=== PATIENT | male | born 1990 | race Caucasian/White ===

== ENCOUNTER 2016-10-22 19:08 | Emergency (ER) | payer OTHER ==
[2016-10-22 19:14] VITALS: RESP 16; O2SAT 97
--- NOTE | 2016-10-22 19:33 | EDPHY ---
H & P Time Seen by Provider: 10/22/16 19:20 HPI/ROS: Chief complaint. Paresthesias HPI. 25-year-old male presents emergency department with sudden onset of pins and needles feeling to his whole body including both sides of arms and legs. He had tingling and numbness to his face. He felt his mouth had tightening up. This occurred at 11:30 a.m. and lasted about 1 hour. Now his joints ache. He has had no fever cough. No headache or visual symptoms with his episode today. Denies chest pain or shortness of breath. Just feels weak like he could only due to pushups. No abdominal pain, vomiting diarrhea. No similar symptoms previously. Baseline healthy without medical problems ROS Constitutional. Generalized weakness Eyes. no problems with vision ENT. no sore throat, no nasal drainage Cardiovascular. no chest pain Respiratory. no shortness of breath, no cough Abdominal. no abdominal pain, no nausea/vomiting, no diarrhea . no problems urinating MS. no calf pain/swelling, no neck/back pain, no joint pain Skin. no rash Lymph. no swollen glands Neuro. Paresthesia Past Medical/Surgical History: Healthy Social History: Single, nonsmoker, no alcohol Smoking Status: Never smoked Physical Exam: General Appearance: Alert well-developed male mild distress vital signs stable Eyes: Pupils equal and round no pallor or injection. ENT, Mouth: Mucous membranes are moist. Respiratory: There are no retractions, lungs are clear to auscultation. Cardiovascular: Regular rate and rhythm. Gastrointestinal: Abdomen is soft and nontender, no masses, bowel sounds normal. Neurological: Awake and alert, sensory and motor exams grossly normal. Normal speech. Cranial nerves normal. No pronator drift. [id number] and heel-to- [place] are intact Skin: Warm and dry, no rashes. Musculoskeletal: Neck is supple nontender. Extremities symmetrical, full range of motion. Psychiatric: Patient is oriented X 3, there is no agitation. Constitutional: Initial Vital Signs Temperature (C) 36.6 C 10/22/16 19:11 Heart Rate 60 10/22/16 19:11 Respiratory Rate 16 10/22/16 19:11 Blood Pressure 121/81 H 10/22/16 19:11 O2 Sat (%) 97 10/22/16 19:11 O2 Delivery Mode Room Air Allergies/Adverse Reactions: Sulfa (Sulfonamide Antibiotics) Allergy (Verified 10/22/16 19:14) Home Medications: Medication Instructions Recorded NK [No Known Home Meds] 10/22/16 Medical Decision Making - Diagnostics EKG Interpretation: EKG interpreted by me shows normal sinus rhythm with normal interval and axis. QRS is normal there is no significant ST elevation or depression. There is slight sinus arrhythmia. Heart rate is 48 Procedures: IV normal saline ED Course/Re-evaluation: Re-evaluation 8:25 p.m.--patient is stable. He is conversational. He is moving all extremities. His symptoms are resolving however he says that he gets pins and needles distal to the blood pressure cuff went to his blood pressure and he has a Kerlix wrap on the left arm around his IV and he feels that this causes some tingling down stream. Patient and I discussed lab an EKG results. We discussed treatment plan including criteria for return importance of follow-up and further evaluation. He expresses understanding and agreement Differential Diagnosis: Other than the sensation of paresthesias the patient is totally neurologically intact. He has no motor findings no localizing findings. He has no headache. He has no neck pain. I suspect that this is likely anxiety. I also considered hypocalcemia, arrhythmia, electrolyte abnormalities - Data Points Laboratory Results: Laboratory Results 10/22/16 19:55 10/22/16 19:55 10/22/16 10/22/16 19:55 19:55 WBC 5.79 10^3/uL 10^3/uL (3.80-9.50) RBC 5.58 10^6/uL 10^6/uL (4.40-6.38) Hgb 17.3 g/dL g/dL (13.7-17.5) Hct 50.1 % % (40.0-51.0) MCV 89.8 fL fL (81.5-99.8) MCH 31.0 pg pg (27.9-34.1) MCHC 34.5 g/dL g/dL (32.4-36.7) RDW 11.8 % % (11.5-15.2) Plt Count 232 10^3/uL 10^3/uL (150-400) MPV 9.2 fL fL (8.7-11.7) Neut % (Auto) 39.9 % % (39.3-74.2) Lymph % (Auto) 40.2 % % (15.0-45.0) [place] % (Auto) 12.8 % % (4.5-13.0) Eos % (Auto) 6.2 % % (0.6-7.6) Baso % (Auto) 0.7 % % (0.3-1.7) Nucleat RBC Rel Count 0.0 % % (0.0-0.2) Absolute Neuts (auto) 2.31 10^3/uL 10^3/uL (1.70-6.50) Absolute Lymphs (auto) 2.33 10^3/uL 10^3/uL (1.00-3.00) Absolute Monos (auto) 0.74 10^3/uL 10^3/uL (0.30-0.80) Absolute Eos (auto) 0.36 10^3/uL 10^3/uL (0.03-0.40) Absolute Basos (auto) 0.04 10^3/uL 10^3/uL (0.02-0.10) Absolute Nucleated RBC 0.00 10^3/uL 10^3/uL (0-0.01) Immature Gran % 0.2 % % (0.0-1.1) Immature Gran # 0.01 10^3/uL 10^3/uL (0.00-0.10) Sodium 142 mEq/L mEq/L (134-144) Potassium 4.2 mEq/L mEq/L (3.5-5.2) Chloride 103 mEq/L mEq/L (97-110) Carbon Dioxide 25 mEq/l mEq/l (22-31) Anion Gap 14 mEq/L mEq/L (8-16) BUN 14 mg/dL mg/dL (7-23) Creatinine 1.2 mg/dL mg/dL (0.7-1.3) Estimated GFR > 60 Glucose 86 mg/dL mg/dL (70-100) Calcium 10.0 mg/dL mg/dL (8.5-10.4) Medications Given: Discontinued Medications Sodium Chloride (Ns) 1,000 mls @ 0 mls/hr IV ONCE ONE; Wide Open PRN Reason: Protocol Stop: 10/22/16 19:42 Last Admin: 10/22/16 20:06 Dose: 1,000 mls Departure - Departure Disposition: Home, Routine, Self-Care Clinical Impression: Paresthesias Condition: Good Instructions: Paresthesia (ED) Additional Instructions: Drink plenty of fluids and stay hydrated. Regular meals. Get plenty of sleep. Avoid drugs and alcohol this weekend. Return for arm or leg weakness, headache, change in vision. I will give you the name of neurologist brown Zavala for follow-up if you have a hard time finding and following up with neurologist in [place] Referrals: NONE *PRIMARY CARE P,. [Primary Care Provider] - As per Instructions Aubrey Lockett MD [Medical Doctor] - 2-3 days without fail
[2016-10-22] MEDS ORDERED: NS 1,000 ML IV ONE (19:41)
--- NOTE | 2016-10-22 20:03 | CPEKG ---
Heart Rate: 48 RR Interval: 1250 P-R Interval: 168 QRSD Interval: 100 QT Interval: 420 QTC Interval: 376 P [place]: 39 QRS [place]: 52 T Wave [place]: 31 EKG Severity - OTHERWISE NORMAL ECG - EKG Impression: SLOW SINUS ARRHYTHMIA, RATE 41-57 Electronically Signed By: Jose Mathews 22-Oct-2016 22:26:50
[2016-10-22 20:08] LABS: % IMMATURE GRANULYOCYTES 0.2 % (0.0-1.1); ABSOLUTE IMMATURE GRANULOCYTES 0.01 10^3/uL (0.00-0.10); ADD DIFF? NO; ADD MORPH? NO; ADD SCAN? NO; ATYPICAL LYMPHOCYTE FLAG 40 (0-99); FRAGMENT RBC FLAG 0 (0-99); HEMATOCRIT 50.1 % (40.0-51.0); HEMOGLOBIN 17.3 g/dL (13.7-17.5); LEFT SHIFT FLG 0 (0-99); LIPEMIA HEMOLYSIS FLAG 90 (0-99); MEAN CELL HEMOGLOBIN CONCENTR. 34.5 g/dL (32.4-36.7); MEAN CELL VOLUME 89.8 fL (81.5-99.8); MEAN PLATELET VOLUME 9.2 fL (8.7-11.7); PLATELET CLUMPS FLAG 0 (0-99); PLATELET COUNT 232 10^3/uL (150-400); RED BLOOD CELL COUNT 5.58 10^6/uL (4.40-6.38); RED CELL DISTRIBUTION WIDTH 11.8 % (11.5-15.2)
[2016-10-22 20:17] LABS: ANION GAP 14 mEq/L (8-16); CARBON DIOXIDE 25 mEq/l (22-31); CHLORIDE 103 mEq/L (97-110); CREATININE 1.2 mg/dL (0.7-1.3); GLOMERULAR FILTRATION RATE > 60; GLUCOSE 86 mg/dL (70-100); POTASSIUM 4.2 mEq/L (3.5-5.2); SODIUM 142 mEq/L (134-144)
[2016-10-22 20:53] VITALS: BP 142/63; PULSE 52; TEMP 98.6
== END 2016-10-22 20:52 | disposition home or self-care (01) ==
DX: R20.2 Paresthesia of skin (principal); E86.9 Volume depletion, unspecified